=== PATIENT | male | born 1985 | race Caucasian/White ===

== ENCOUNTER 2019-11-16 09:52 | Emergency (ER) | payer SELFPAY ==
[2019-11-16 09:59] VITALS: BP 162/112; PULSE 97; RESP 18; TEMP 36.7; O2SAT 97; BMI 27.1
--- NOTE | 2019-11-16 10:06 | XRR_ITS ---
PROCEDURE INFORMATION: Exam: XR Chest, 1 View Exam date and time: 11/16/2019 10:09 AM Age: 34 years old Clinical indication: Shortness of breath; Additional info: SOB TECHNIQUE: Imaging protocol: XR of the chest Views: 1 view. COMPARISON: No relevant prior studies available. FINDINGS: Lungs: Unremarkable. No consolidation. Pleural space: Unremarkable. No pleural effusion. No pneumothorax. Heart/Mediastinum: Unremarkable. No cardiomegaly. Bones/joints: No acute findings. XR/XR chest 1V portable [id number] IMPRESSION: No acute findings.
--- NOTE | 2019-11-16 10:09 | ED_ITS ---
Documented by User: JOSE MANUEL Hendrickson 11/18/19 09:28 HPI - SOB/Dyspnea General: Chief Complaint: Shortness of Breath/Dyspnea Stated Complaint: CHEST FLUTTERS/PREVIOUS FEVER Time Seen by Provider: 11/16/19 10:00 History of Present Illness: HPI Narrative: Patient is a 34-year-old male who comes to the ED with shortness of breath. Symptoms started about a month ago. Patient does have a past medical history of a collapsed lung and he fully recovered from it. Patient says that starting last Sunday he started getting stomach bug symptoms such as nausea, vomiting and diarrhea. He also was having fevers and chills as well. Today in the ED he says he is gotten over the stomach bug and has last symptoms of diarrhea and nausea occurred yesterday. He has been eating and drinking and able to keep fluids down. He states he feels much better today. Shortness of breath symptoms are just episodic and only when he takes a deep breath sometimes he describes feeling fluttering at the bases of the lungs. Patient states he thinks he is probably just being overly worried, but just wanted to get it checked out. He denies any gasping for air or feeling like he is unable to catch his breath during these episodes. They are very brief and cause no distress. Denies having a fever in the last 24 hours. Denies any current symptoms of nausea, vomiting, diarrhea, abdominal pain, chest pain. Denies any recent travel outside of [place] in the last 2 months. He also denies any known contact with COVID-19 positive patient. Associated symptoms: Deny abdominal pain, chest pain, fever(s), nausea, orthopnea, palpitations or vomiting Review of Systems Const: Denies: fever, chills or fatigue Eyes: Denies: change in vision or eye discomfort ENMT: Denies: throat pain, painful swallowing, nasal discharge or nasal congestion Card: Denies: chest pain, palpitations, edema, swelling of feet/ankles, shortness of breath on exertion or shortness of breath when lying down Resp: Reports: shortness of breath; Denies: productive cough or non-productive cough GI: Denies: abdominal pain, nausea, vomiting, diarrhea, constipation or blood in stool : Denies: flank pain, difficulty urinating, painful urination or blood in urine Musc: Denies: neck pain, back pain or extremity swelling Skin/Breast: Denies: rash or new lesion Neuro: Denies: headache, numbness in extremities or weakness in extremities PFSH ED PFSH: Social History Smoking and tobacco status: former smoker Physical Exam Narrative: EXAM NARRATIVE: Patient is sitting comfortably on the exam bed when I enter the room. He is showing no signs of any acute distress or any respiratory distress. Const: COMMON NORMALS: oriented x3 HENMT: COMMON NORMALS: normocephalic HEAD & SCALP: normocephalic MOUTH: oral and palatal mucosa normal THROAT: posterior oropharynx normal and uvula midline Neck/C-Spine: COMMON NORMALS: supple GENERAL: Yes normal visual inspection Resp: COMMON NORMALS: normal respiratory effort, no retractions, no use of accessory muscles and clear to auscultation bilaterally EFFORT & INSPECTION: Yes able to speak in complete sentences, No abnormal respiratory pattern, No respiratory distress and No labored AUSCULTATION: clear to auscultation bilaterally Cardio: COMMON NORMALS: regular rate, regular rhythm, S1 normal heart sound, S2 normal heart sound, no gallops, no clicks, no murmurs and peripheral pulses 2+ throughout RATE: regular rate RHYTHM: regular rhythm HEART SOUNDS: S1 normal and S2 normal PERIPHERAL PULSES: pulses 2+ throughout GI: COMMON NORMALS: normal to inspection, nondistended, normoactive bowel sounds, soft to palpation, non-tender and no masses PALPATION: Yes soft : COMMON NORMALS: Yes no CVA tenderness BLADDER/KIDNEY EXAM: Yes no CVA tenderness Back/Pelvis: COMMON NORMALS: no CVA tenderness Extremity: COMMON NORMALS: normal to inspection and normal capillary refill Neuro: COMMON NORMALS: oriented x3 and moves all extremities Skin: GENERAL SKIN EXAM: dry skin Course Vital Signs: Vital signs: Vital Signs Temperature 98.2 F 11/16/19 12:10 Pulse Rate 96 11/16/19 12:10 Respiratory Rate 18 11/16/19 12:10 Blood Pressure 139/92 11/16/19 12:10 Pulse Oximetry 97 11/16/19 12:10 MDM - SOB/Dyspnea MDM Narrative: Medical decision making narrative: Patient is a 34-year-old male who comes into the ED with shortness of breath. He describes shortness of breath is very brief and episodic sometimes when he takes a deep breath. He states that it does not cause him any distress or cause him to get short of breath. Physical exam showed a 34-year-old male in no signs of any respiratory distress, coughing or having any problems breathing. Lungs were clear to auscultation bilaterally. Chest x-ray was normal showing no acute disease. CBC was normal and CMP showed slightly elevated creatinine. Patient was given 1 L of IV fluids and discharged. He was told to follow-up with his primary care doctor in 7 days to repeat creatinine lab. Patient understood and agreed with plans. Lab Data: Attestation: I reviewed the patient's lab results. Labs: Lab Results 11/16/19 11/16/19 11/16/19 Range/Units 10:06 10:15 10:15 WBC 9.7 (4.0-10.0) 10^3/ uL RBC 6.21 H (4.1-5.3) 10^6/u L Hgb 18.6 H (11.7-16.6) g/dL Hct 53.9 H (42.0-52.0) % MCV 86.8 (80-94) fL MCH 30.0 (28.0-34.0) pg MCHC 34.5 (30.0-36.0) g/dL RDW 11.8 L (12.1-15.1) % Plt Count 224 (130-400) 10^3/c mm MPV 10.0 (7.4-10.4) fL Neut % (Auto) 72.1 % Lymph % (Auto) 22.8 % [place] % (Auto) 4.5 % Eos % (Auto) 0.1 % Baso % (Auto) 0.3 % Neut # (Auto) 7.0 (1.8-7.7) 10^3/u L Lymph # (Auto) 2.2 (0.8-4.8) 10^3/u L [place] # (Auto) 0.4 (0.2-0.9) 10^3/u L Eos # (Auto) 0.0 (0.0-0.8) 10^3/u L Baso # (Auto) 0.0 (0.0-0.1) 10^3/u L Nucleated RBC % (a uto) 0 % Nucleated RBCs # 0.0 /100WBC Sodium 141 (136-145) mmol/L Potassium 3.5 (3.5-5.1) mmol/L Chloride 103 (98-107) mmol/L Carbon Dioxide 24 (22-29) mmol/L Anion Gap 17.5 (5-19) BUN 16 (6-20) mg/dL Creatinine 1.3 H (0.7-1.2) mg/dL GFR Calculation 64.0 L (90-130) mL/min Glucose 138 H (65-115) mg/dL Calculated Osmolal ity 291 (285-295) mOsm/k g Calcium 10.1 (8.5-10.5) mg/dL Total Bilirubin 0.8 (0.15-1.2) mg/dL AST 15 (0-40) U/L ALT 21 (0-41) U/L Alkaline Phosphata se 94 (40-130) IU/L Total Protein 7.8 (6.6-8.7) g/dL Albumin 4.8 (3.5-5.2) g/dL Globulin 3.0 (1.3-4.6) g/dL Influenza Type A A g Negative (Negative) POC Influenza B Ag Negative (Negative) Imaging Data^: CXR: Attestation: I personally reviewed and interpreted this imaging study as follows: Radiologist's impression: [address] [address] XRay Report Signed Patient: Helio Hunter Unit #: [id number] : 1985 Age/Sex: 34 / M ADM Date: 11/16/19 Loc: ER Room/Bed: Attending Dr: Ordering Provider/Ordering MD: Nael Kaur Date of Service: 11/16/19 Procedure(s): XR chest 1V portable [id number] Accession Number(s): [id number] Report Number: [id number] PROCEDURE INFORMATION: Exam: XR Chest, 1 View Exam date and time: 11/16/2019 10:09 AM Age: 34 years old Clinical indication: Shortness of breath; Additional info: SOB TECHNIQUE: Imaging protocol: XR of the chest Views: 1 view. COMPARISON: No relevant prior studies available. FINDINGS: Lungs: Unremarkable. No consolidation. Pleural space: Unremarkable. No pleural effusion. No pneumothorax. Heart/Mediastinum: Unremarkable. No cardiomegaly. Bones/joints: No acute findings. XR/XR chest 1V portable [id number] IMPRESSION: No acute findings. Dictated By: Pete Santiago MD Signed By: Pete Santiago MD Signed Date/Time: 11/16/19 1136 DD/ 1135 Discharge Plan Discharge Patient Disposition: Home, Self-Care Clinical Impression: Elevated serum creatinine, Normal respiratory exam Condition: Stable Prescriptions: No Action Divya-[place] Plus Flu 2-5-10-250 mg Tablet, Effervescent 2 ea PO PRN RF: 0 Tylenol Upzo-Mqj-Tyjqc Dy-Nt 6.25-5-325 mg/15 mL (nt) Liquid, Sequential 6.25 ml PO PRN RF: 0 Day-Cold Fvedt-Futf-Bsh(doxyl) 6.25-5-10-325 mg (nt) Capsule, Sequential 2 cap PO PRN RF: 0 Discharge Orders: Discharge Order (Routine); Ordered 11/16/19 Ordered By: Nael Kaur Discharge Diet: Regular Discharge Activity: Resume usual activity Activity Restrictions/Additional Instructions: Follow-up with your PCP in 7 days to recheck creatinine lab. Drink plenty of fluids and stay hydrated. Return to the ED if you have any worsening symptoms. Discharge Date/Time: 11/16/19 12:13 Coding Level of Care Code ED Smoking Pipe Coater for Chg Fwd Exam Comprehensive Documented by User: Mckay Avina DO 11/18/19 11:14 HPI - SOB/Dyspnea General: Chief Complaint: Shortness of Breath/Dyspnea Stated Complaint: CHEST FLUTTERS/PREVIOUS FEVER Time Seen by Provider: 11/16/19 10:00 PFSH ED PFSH: Social History Smoking and tobacco status: former smoker Course Vital Signs: Vital signs: Vital Signs Temperature 98.2 F 11/16/19 12:10 Pulse Rate 96 11/16/19 12:10 Respiratory Rate 18 11/16/19 12:10 Blood Pressure 139/92 11/16/19 12:10 Pulse Oximetry 97 11/16/19 12:10 MDM - SOB/Dyspnea MDM Narrative: Medical decision making narrative: Reviewed case with PA agree with assessment and plan. Lab Data: Labs: Lab Results 11/16/19 11/16/19 11/16/19 Range/Units 10:06 10:15 10:15 WBC 9.7 (4.0-10.0) 10^3/ uL RBC 6.21 H (4.1-5.3) 10^6/u L Hgb 18.6 H (11.7-16.6) g/dL Hct 53.9 H (42.0-52.0) % MCV 86.8 (80-94) fL MCH 30.0 (28.0-34.0) pg MCHC 34.5 (30.0-36.0) g/dL RDW 11.8 L (12.1-15.1) % Plt Count 224 (130-400) 10^3/c mm MPV 10.0 (7.4-10.4) fL Neut % (Auto) 72.1 % Lymph % (Auto) 22.8 % [place] % (Auto) 4.5 % Eos % (Auto) 0.1 % Baso % (Auto) 0.3 % Neut # (Auto) 7.0 (1.8-7.7) 10^3/u L Lymph # (Auto) 2.2 (0.8-4.8) 10^3/u L [place] # (Auto) 0.4 (0.2-0.9) 10^3/u L Eos # (Auto) 0.0 (0.0-0.8) 10^3/u L Baso # (Auto) 0.0 (0.0-0.1) 10^3/u L Nucleated RBC % (a uto) 0 % Nucleated RBCs # 0.0 /100WBC Sodium 141 (136-145) mmol/L Potassium 3.5 (3.5-5.1) mmol/L Chloride 103 (98-107) mmol/L Carbon Dioxide 24 (22-29) mmol/L Anion Gap 17.5 (5-19) BUN 16 (6-20) mg/dL Creatinine 1.3 H (0.7-1.2) mg/dL GFR Calculation 64.0 L (90-130) mL/min Glucose 138 H (65-115) mg/dL Calculated Osmolal ity 291 (285-295) mOsm/k g Calcium 10.1 (8.5-10.5) mg/dL Total Bilirubin 0.8 (0.15-1.2) mg/dL AST 15 (0-40) U/L ALT 21 (0-41) U/L Alkaline Phosphata se 94 (40-130) IU/L Total Protein 7.8 (6.6-8.7) g/dL Albumin 4.8 (3.5-5.2) g/dL Globulin 3.0 (1.3-4.6) g/dL Influenza Type A A g Negative (Negative) POC Influenza B Ag Negative (Negative) Discharge Plan Discharge Patient Disposition: Home, Self-Care Clinical Impression: Elevated serum creatinine, Normal respiratory exam Condition: Stable Prescriptions: No Action Divya-[place] Plus Flu 2-5-10-250 mg Tablet, Effervescent 2 ea PO PRN RF: 0 Tylenol Pzcx-Uks-Ikohh Dy-Nt 6.25-5-325 mg/15 mL (nt) Liquid, Sequential 6.25 ml PO PRN RF: 0 Day-Cold Pbyho-Jkit-Ygy(doxyl) 6.25-5-10-325 mg (nt) Capsule, Sequential 2 cap PO PRN RF: 0 Discharge Orders: Discharge Order (Routine); Ordered 11/16/19 Ordered By: Nael Kaur Discharge Diet: Regular Discharge Activity: Resume usual activity Activity Restrictions/Additional Instructions: Follow-up with your PCP in 7 days to recheck creatinine lab. Drink plenty of fluids and stay hydrated. Return to the ED if you have any worsening symptoms. Discharge Date/Time: 11/16/19 12:13 Coding Level of Care Code ED Smoking Pipe Coater for Marcela Fwd Exam Comprehensive
[2019-11-16 10:21] LABS: Basophils % 0.3 %; Eosinophils % 0.1 %; Hematocrit 53.9 % (42.0-52.0); Hemoglobin 18.6 g/dL (11.7-16.6); Lymphocytes # 2.2 10^3/uL (0.8-4.8); Lymphocytes % 22.8 %; Mean Corpuscular HGB Conc 34.5 g/dL (30.0-36.0); Mean Corpuscular Volume 86.8 fL (80-94); Monocytes # 0.4 10^3/uL (0.2-0.9); Monocytes % 4.5 %; Neutrophils % 72.1 %; Nucleated Red Blood Cells % 0 %; Platelet Count 224 10^3/cmm (130-400); Red Blood Count 6.21 10^6/uL (4.1-5.3); Red Cell Distribution Width 11.8 % (12.1-15.1); White Blood Count 9.7 10^3/uL (4.0-10.0)
[2019-11-16 10:35] LABS: Alanine Aminotransferase 21 U/L (0-41); Albumin Level 4.8 g/dL (3.5-5.2); Alkaline Phosphatase 94 IU/L (40-130); Anion Gap 17.5 (5-19); Aspartate Amino Transferase 15 U/L (0-40); Blood Urea Nitrogen 16 mg/dL (6-20); Calcium 10.1 mg/dL (8.5-10.5); Carbon Dioxide 24 mmol/L (22-29); Chloride 103 mmol/L (98-107); Glucose 138 mg/dL (65-115); Osmolality Calculated 291 mOsm/kg (285-295); Potassium 3.5 mmol/L (3.5-5.1); Sodium 141 mmol/L (136-145); Total Bilirubin 0.8 mg/dL (0.15-1.2); Total Protein 7.8 g/dL (6.6-8.7)
[2019-11-16 11:03] LABS: Influenza A by IFA Negative (Negative); Influenza B by IFA Negative (Negative)
[2019-11-16] MEDS: sodium chloride 0.9% 1,000 ML 999 ML IV (11:32)
[2019-11-16 12:10] VITALS: BP 139/92; PULSE 96; RESP 18; TEMP 36.8; O2SAT 97
== END 2019-11-16 12:13 | disposition home or self-care (01) ==
PROVIDERS: Emergency Provider Physician Assistant
DX: R94.4 Abnormal results of kidney function studies (principal); Z87.891 Personal history of nicotine dependence
CPT/HCPCS: 12345; 36415; 71045; 80053; 85025; 87804; 96360; 99282; 99283; J7030

== ENCOUNTER 2020-03-22 08:29 | Emergency (ER) | payer MEDICAID, SELFPAY ==
[2020-03-22 08:32] VITALS: BMI 26.4
[2020-03-22 08:35] VITALS: BP 175/109; PULSE 69; RESP 16; TEMP 36.8; O2SAT 99
[2020-03-22 08:45] LABS: Basophils % 0.3 %; Eosinophils # 0.2 10^3/uL (0.0-0.8); Eosinophils % 2.6 %; Hematocrit 51.9 % (42.0-52.0); Hemoglobin 17.3 g/dL (11.7-16.6); Lymphocytes # 2.4 10^3/uL (0.8-4.8); Lymphocytes % 36.5 %; Mean Corpuscular HGB Conc 33.3 g/dL (30.0-36.0); Mean Corpuscular Hemoglobin 29.7 pg (28.0-34.0); Mean Platelet Volume 10.2 fL (7.4-10.4); Monocytes # 0.4 10^3/uL (0.2-0.9); Monocytes % 5.9 %; Neutrophils # 3.52 10^3/uL (1.8-7.7); Neutrophils % 54.4 %; Nucleated Red Blood Cells % 0 %; Platelet Count 203 10^3/cmm (130-400); Red Blood Count 5.83 10^6/uL (4.1-5.3); Red Cell Distribution Width 11.7 % (12.1-15.1); White Blood Count 6.5 10^3/uL (4.0-10.0)
--- NOTE | 2020-03-22 08:48 | CT_ITS ---
WS: [id number] CT ABDOMEN AND PELVIS NONCONTRAST HISTORY: L flank pain after urinating TECHNIQUE: Imaging performed through the abdomen and pelvis. Coronal and sagittal reformats are submi tted. All CT scans at [facility] use at least one of these dose optimization techniques: automated exposure control; mA and/or kV adjustment per patient size (includes targeted exams where d ose is matched to clinical indication); or iterative reconstruction. DLP: 1842.52 mGy.cm COMPARISON: None available. Lower thorax: Lung bases are clear. Small hiatal hernia. Liver: Normal, no mass or intrahepatic dilatation. Gallbladder: Unremarkable. Pancreas: Normal. Spleen: Normal. Adrenal glands: Normal. Right kidney: 3 mm nonobstructing calcification lower pole RIGHT kidney. No hydronephrosis. No ureter al calcification. Left kidney: Very mild stranding of the parapelvic fat and dilatation of the LEFT renal pelvis and ur eter. There is mild periureteral stranding surrounding the proximal ureter. Nonobstructing calcificat ions in the lower pole of the LEFT kidney with the largest measuring 4 mm. Abdominal aorta and IVC are unremarkable. No free fluid, intraperitoneal air or significant lymphadenopathy. GI tract: Prior appendectomy. No GI tract obstruction. Minimal diverticula in the descending and sigm oid colon without acute inflammation. No mucosal thickening. Abdominal wall: Intact. Pelvis: No free fluid. Urinary bladder is not distended. No calcifications within the urinary bladder . Osseous structures: Unremarkable. CT/CT kidney stone [id number] IMPRESSION: 1. Very minimal inflammatory stranding in the LEFT renal pelvis and around the proximal LEFT ureter. No calcifications are noted within the ureter. Changes m ay be due to recently passed ureteral calcification or pyelonephritis.. 2. Bilateral nephrolithiasis, nonobstructing. 3. Prior appendectomy.
--- NOTE | 2020-03-22 08:49 | W.ED.MALEGU ---
HPI - Male Genitourinary General: Chief complaint: Urogenital-Male Stated complaint: poss kidney issue Time Seen by Provider: 03/22/20 08:30 Source: patient Mode of arrival: ambulatory Limitations: no limitations History of Present Illness: HPI Narrative: Patient is a 35-year-old male presents to ED today with a complaint of pain about his left flank. Patient states when he got up this morning he went to the restroom to urinate and states after urination he began having a very sharp sudden onset pain to his left flank that has continued. Patient denies any history of kidney stones. He also complained of dysuria, hematuria, urgency/hesitancy, or difficulty starting the stream. He has not had any fevers or chills. He does admit to nausea with one episode of vomiting after the pain began. No abdominal pain. MD Complaint: other (L flank pain) Onset (ago): hour(s) Duration: constant Location: left flank Severity: moderate Quality: sharp Relieving factors: none Associated symptoms: Reports no associated symptoms, nausea and vomiting; Deny dysuria Review of Systems Const: Denies: fever(s), chills or body aches Card: Denies: chest pain Resp: Denies: dyspnea GI: Reports: nausea and vomiting; Denies: abdominal pain, diarrhea, constipation or change in bowel habits : Reports: flank pain; Denies: difficulty urinating, dysuria, urinary frequency, urinary urgency, urinary hesitancy or difficulty starting urination [facility] ED PFSH: Social History Smoking and tobacco status: former smoker Physical Exam Const: COMMON NORMALS: no acute distress, average body habitus, patient oriented x3, no limitations, healthy appearing, alert and well nourished GI: COMMON NORMALS: Normal to inspection, nondistended, normoactive bowel sounds present, Soft to palpation, non-tender, No hepatosplenomegaly present and no masses PALPATION: Yes Soft to palpation and Yes No hepatosplenomegaly present : BLADDER/KIDNEY EXAM: Yes CVA tenderness (just inferior to L CVA) Back/Pelvis: GENERAL BACK: Yes CVA tenderness (just inferior to L CVA) Neuro: COMMON NORMALS: patient oriented x3 SENSORIUM/ORIENTATION: Yes alert Course Vital Signs: Vital signs: Vital Signs Temperature 98.3 F 08/03/20 08:35 Pulse Rate 69 03/22/20 08:35 Respiratory Rate 16 03/22/20 08:35 Blood Pressure 175/109 03/22/20 08:35 Pulse Oximetry 99 03/22/20 08:35 MDM - Male Lab Data: Labs: Lab Results 03/22/20 03/22/20 03/22/20 Range/Units 08:40 08:40 09:13 WBC 6.5 (4.0-10.0) 10^3/ uL RBC 5.83 H (4.1-5.3) 10^6/u L Hgb 17.3 H (11.7-16.6) g/dL Hct 51.9 (42.0-52.0) % MCV 89.0 (80-94) fL MCH 29.7 (28.0-34.0) pg MCHC 33.3 (30.0-36.0) g/dL RDW 11.7 L (12.1-15.1) % Plt Count 203 (130-400) 10^3/c mm MPV 10.2 (7.4-10.4) fL Neut % (Auto) 54.4 % Lymph % (Auto) 36.5 % [place] % (Auto) 5.9 % Eos % (Auto) 2.6 % Baso % (Auto) 0.3 % Neut # (Auto) 3.52 (1.8-7.7) 10^3/u L Lymph # (Auto) 2.4 (0.8-4.8) 10^3/u L [place] # (Auto) 0.4 (0.2-0.9) 10^3/u L Eos # (Auto) 0.2 (0.0-0.8) 10^3/u L Baso # (Auto) 0.0 (0.0-0.1) 10^3/u L Nucleated RBC % (a uto) 0 % Nucleated RBCs # 0.0 /100WBC Sodium 139 (136-145) mmol/L Potassium 3.7 (3.5-5.1) mmol/L Chloride 104 (98-107) mmol/L Carbon Dioxide 25 (22-29) mmol/L Anion Gap 13.7 (5-19) BUN 21 H (6-20) mg/dL Creatinine 1.1 (0.7-1.2) mg/dL GFR Calculation 77.1 L (90-130) mL/min Glucose 135 H (65-115) mg/dL Calculated Osmolal ity 287 (285-295) mOsm/k g Calcium 9.2 (8.5-10.5) mg/dL Urine Color Yellow (Yellow) Urine Appearance Sl hazy (CLEAR) Urine pH 7 (5-7) Ur Specific Gravit y 1.015 (1.005-1.030) Urine Protein Neg (Negative) Urine Glucose (UA) Norm (Normal) Urine Ketones Negative (Negative) Urine Blood 3+ H (Negative) Urine Nitrate Negative (Negative) Urine Bilirubin Neg (NEGATIVE) Urine Urobilinogen Norm (Negative) mg/dL Ur Leukocyte Rosette ase Negative (Negative) Urine RBC 15-25 H (0-2) /hpf Urine WBC 0-4 H (0-5) /hpf Ur Squamous Epith Cells None (0-5) Amorphous Sediment Not Reportable Urine Bacteria 1+ H (NONE) Imaging Data: CT Abd/Pel: Radiologist's impression: [place] [address] CT Scan Report Signed Patient: Helio Hunter Unit #: [id number] : 1985 Age/Sex: 35 / M ADM Date: 03/22/20 Loc: ER Room/Bed: Attending Dr: Ordering Provider/Ordering MD: Freya Robison Date of Service: 03/22/20 Procedure(s): CT kidney stone 08859 Accession Number(s): [id number] Report Number: [id number] WS: [id number] CT ABDOMEN AND PELVIS NONCONTRAST HISTORY: L flank pain after urinating TECHNIQUE: Imaging performed through the abdomen and pelvis. Coronal and sagittal reformats are submitted. All CT scans at [facility] use at least one of these dose optimization jeanna hniques: automated exposure control; mA and/or kV adjustment per patient size (includes targeted exams where dose is matched to clinical indication); or iterative reconstruction. DLP: 1842.52 mGy.cm COMPARISON: None available. Lower thorax: Lung bases are clear. Small hiatal hernia. Liver: Normal, no mass or intrahepatic dilatation. Gallbladder: Unremarkable. Pancreas: Normal. Spleen: Normal. Adrenal glands: Normal. Right kidney: 3 mm nonobstructing calcification lower pole RIGHT kidney. No hydronephrosis. No ureteral calcification. Left kidney: Very mild stranding of the parapelvic fat and dilatation of the LEFT renal pelvis and ureter. There is mild periureteral stranding surrounding the proximal ureter. Nonobstructing calcifications in the lower pole of the LEFT kidney with the largest measuring 4 mm. Abdominal aorta and IVC are unremarkable. No free fluid, intraperitoneal air or significant lymphadenopathy. GI tract: Prior appendectomy. No GI tract obstruction. Minimal diverticula in the descending and sigmoid colon without acute inflammation. No mucosal thickening. Abdominal wall: Intact. Pelvis: No free fluid. Urinary bladder is not distended. No calcifications within the urinary bladder. Osseous structures: Unremarkable. CT/CT kidney stone [id number] IMPRESSION: 1. Very minimal inflammatory stranding in the LEFT renal pelvis and around the proximal LEFT ureter. No calcifications are noted within the ureter. Changes may be due to recently passed ureteral calcification or pyelonephritis.. 2. Bilateral nephrolithiasis, nonobstructing. 3. Prior appendectomy. Dictated By: Roro Lancaster DO Signed By: Roro Lancaster DO Signed Date/Time: 03/22/20926 DD/ 1 Discharge Plan Discharge Patient Disposition: Home Clinical Impression: Calculus of left kidney Condition: Stable Prescriptions: New hydrocodone-acetaminophen 5-325 mg tablet 1 tab PO Q6H PRN (Reason: pain) Qty: 14 RF: 0 Zofran 4 mg tablet 4 mg PO Q6H PRN (Reason: nausea and vomiting) Qty: 14 RF: 0 Flomax 0.4 mg capsule 0.4 mg PO DAILY Qty: 10 RF: 0 Discharge Orders: Discharge Order (Routine); Ordered 03/22/20 Ordered By: Freya Robison Referrals: Marcelino Hough MD [Physician] - Patient Instructions: Kidney Stones (ED), How to Strain Your Urine (ED) Activity Restrictions/Additional Instructions: As discussed case management should contact you shortly to set you up to see Dr. Hough. Strain your urine as directed and bring stone with you to your appointment if you pass one. Return to the emergency department for worsening or uncontrollable pain, fevers, repetitive episodes of vomiting, or any other concerns you may have. Coding Level of Care Code ED Content Production Specialist for Chg Fwd Exam Expanded Problem Focused
[2020-03-22 09:07] LABS: Anion Gap 13.7 (5-19); Blood Urea Nitrogen 21 mg/dL (6-20); Calcium 9.2 mg/dL (8.5-10.5); Carbon Dioxide 25 mmol/L (22-29); Chloride 104 mmol/L (98-107); Glomerular Filtration Rate 77.1 mL/min (90-130); Glucose 135 mg/dL (65-115); Osmolality Calculated 287 mOsm/kg (285-295); Potassium 3.7 mmol/L (3.5-5.1); Sodium 139 mmol/L (136-145)
[2020-03-22 09:31] LABS: Add Urine Microscopic? YES; Bilirubin Urine Neg (NEGATIVE); Blood Urine 3+ (Negative); Glucose Urine UA Norm (Normal); Ketones Urine Negative (Negative); Leukocyte Esterase Urine Negative (Negative); Nitrate Urine Negative (Negative); Protein Urine Neg (Negative); Specific Gravity, Urine 1.015 (1.005-1.030); Urine Appearance SL Hazy (CLEAR); Urine Color Yellow (Yellow); Urobilinogen Urine Norm (Negative); pH Urine 7 (5-7)
[2020-03-22 09:32] LABS: Add Urine Culture? Yes; Bacteria Urine 1+; RBC Urine 15-25 /hpf (0-2); WBC Urine 0-4 /hpf (0-5)
[2020-03-22 09:46] VITALS: RESP 18
[2020-03-22] MEDS: morphine 4 mg/mL SDV 1 mL IM (09:46)
[2020-03-22] MEDS: ondansetron 2 mg/ML SDV 2 mL 4 MG IM (09:46)
[2020-03-22 10:06] VITALS: BP 151/95; PULSE 66; RESP 20; TEMP 36.8; O2SAT 98
--- NOTE | 2020-03-22 14:30 | PC.SOCIAL ---
Referral received from Freya Robison for Urology appt for kidney stones. Spoke with Crystal at clinic and they will review information and call patient with appointment. Updated patient that he will be receiving a call from Dr Hough office. Patient was appreciative
--- NOTE | 2020-03-26 10:11 | DCPLANNER ---
Patient had a follow up appointment scheduled for 03.25.[address] Hough - patient did attend the appointment.
== END 2020-03-22 10:04 | disposition home or self-care (01) ==
PROVIDERS: Family Medicine; Emergency Provider Physician Assistant
DX: N20.0 Calculus of kidney (principal); Z87.891 Personal history of nicotine dependence
CPT/HCPCS: 12345; 36415; 74176; 80048; 81001; 81003; 85025; 87086; 96372; 99283; J2270; J2405

== ENCOUNTER 2020-03-25 14:26 | Outpatient (CLI) | payer MEDICAID, SELFPAY ==
--- NOTE | 2020-03-25 15:00 | XR_ITS ---
WS: [id number] ABDOMEN: SUPINE FILM HISTORY: Stones COMPARISON: 03/22/2020. Normal bowel gas pattern. No ureteral calcifications. Right kidney: 2 mm calcification lower pole RIGHT kidney. Left kidney: 3 mm calcification lower pole LEFT kidney. XR/XR KUB [id number] IMPRESSION: Bilateral nephrolithiasis.
== END 2020-03-25 14:27 | disposition home or self-care (01) ==
LOC: RAD 14:29
PROVIDERS: PCP Physician Assistant; Visit Provider Nurse Practitioner Family
DX: N20.0 Calculus of kidney (principal)
CPT/HCPCS: 74018; 81001; 82365